=== PATIENT | male | born 1960 | race Caucasian/White ===

== ENCOUNTER 2016-10-15 22:00 | Inpatient (IN) | payer MEDICARE, MEDICAID ==
[~2016-10-15] VITALS: Ht 170.2 cm; Wt 93.2 kg
--- NOTE | ~2016-10-15 | ER ---
PATIENT'S NAME: FRITZ [facility] AGE: 56 Y [address] ROOM: [place] [address] LOCATION: [facility] [place] ADMIT DATE: 10/16/2016 ER/Outpatient Report DISCHARGE DATE: FAMILY PHYSICIAN: PHYSICIAN, NO ATTENDING PHYSICIAN: OCHOA EDGAR V Time of Arrival: 2200 hours. Time of Evaluation: 2344 hours. IDENTIFICATION: A 56-year-old male. CHIEF COMPLAINT: Illness. HISTORY OF PRESENT ILLNESS: The patient is a 56-year-old male with cerebral palsy, change in medications and illness. He arrived at 2200 hours, but due to no beds being available in the emergency room was triaged and then not put back until 2344 hours, but was seen with the nurse at the time he was put back. The patient has a history of cerebral palsy, is . According to his and the friend who has brought them in, he normally does carry on a conversation and is normally ambulatory with a walker. The patient sees Kain [place] for adjustment on his psychiatric medications and on 09/02/2016, he began tapering of his lithium and he was initiated on Latuda 20 mg daily for 1-week then increased to 40 mg daily. He has since weaned off his lithium and on 10/12/2016, his Latuda was increased to 80 mg daily. He continued all of his other current medications. Since changing that on , he has been requiring a little bit more care and today he has not been ambulatory, not eating. He is continuing to drink fluids okay and not verbal with them where as normally he is verbal. PAST MEDICAL HISTORY: ALLERGIES: HALDOL. HIS IS UNCERTAIN WHAT HAPPENS WITH THAT AND THAT WAS PRIOR TO WHEN SHE MET HIM. CURRENT MEDICATIONS: 1. Lisinopril 10 mg daily. 2. Sertraline 50 mg 1-1/2 tablet daily. 3. Levothyroxine 100 mcg daily. 4. Allopurinol 100 mg 2 tablets daily. 5. Vitamin D. 6. Olanzapine 10 mg at bedtime. 7. Trazodone 50 mg at bedtime. PATIENT'S NAME: FRITZ [facility] AGE: 56 Y [address] ROOM: [place] [address] LOCATION: [facility] [place] ADMIT DATE: 10/16/2016 ER/Outpatient Report DISCHARGE DATE: FAMILY PHYSICIAN: PHYSICIAN, NO ATTENDING PHYSICIAN: OCHOA EDGAR V 8. Tamsulosin 0.4 mg 2 capsules at bedtime. 9. Latuda 80 mg at bedtime. MEDICAL PROBLEMS: The patient is legally blind. He has cerebral palsy, hyperlipidemia, gout, depression, hypertension, sleep apnea wears CPAP, bipolar disorder. He was hospitalized in 1992 for alcoholism. PRIOR SURGERIES: In 1962, heel cord surgery. In 1970, another foot surgery. In 1964, rotate bones in both legs. In 1962, left eye surgery. In 1988, right eye surgery. In 2011, lumbar decompression and stabilization with a transfemoral lumbar interbody fusion at L5-S1. FAMILY HISTORY: Paternal grandfather with stroke. Mother with high blood pressure. Maternal grandmother and paternal grandmother with diabetes. Maternal grandfather and maternal uncle with [place]. Stomach ulcers in father, asthma in father, emphysema in father. Migraine in mother. According to [facility] records, the patient is nonverbal at this time and the history is not obtained from him. REVIEW OF SYSTEMS: Unable to obtain from the patient. PHYSICAL EXAMINATION: VITAL SIGNS: Weight 96.1 kg. Blood pressure 153/83, pulse 60, respirations 18, temperature 98.2, and saturations 94% on room air. GENERAL: A 56-year-old male who is nonverbal, blind in both eyes. He is following some commands. He is a 2-person assist to get onto the cot. HEENT: Head: Normocephalic. Eyes: Enucleated on the right. Loss of vision on the left. Nose: Mucosa pink. No lesions. Mouth: No lesions. Pharynx benign. NECK: Supple. No lymphadenopathy. LUNGS: Clear to auscultation. Breath sounds are equal. No rhonchi, wheezes, or rales. HEART: Regular rate and rhythm. No murmur, rub, or gallop. ABDOMEN: Bowel sounds present. Soft, nondistended, appears to be nontender. SKIN: Anchor, warm, and dry. No lesions or rashes noted. NEURO: The patient is alert. Unable to determine orientation. Cranial nerves 2 through 12 grossly intact. Motor strength 5/5 and he follows commands. His upper extremities and lower extremities appeared to be weak. Sensation appears to be intact. The patient does have some rigidity and cogwheeling in his upper extremities. LABORATORY DATA: PATIENT'S NAME: FRITZ [facility] AGE: 56 Y [address] ROOM: [id number] [place], [place] [address] LOCATION: [facility] [place] ADMIT DATE: 10/16/2016 ER/Outpatient Report DISCHARGE DATE: FAMILY PHYSICIAN: PHYSICIAN, NO ATTENDING PHYSICIAN: OCHOA EDGAR V Normal saline was initiated at 100 mL/h. Labs were obtained. Sodium 142, potassium 3.6, chloride 111, CO2 of 21, BUN 27, creatinine 1.9 which appears to be stable. Blood sugar 96. Liver enzymes normal. CPK 107 and CK-MB 1.8. Troponin I less than 0.040. TSH 1.060. Hemoglobin 13.3, hematocrit 40.8, platelets 231. White count 8.2 with a normal differential. INR 1.01. IMAGING: Head CT, no acute intracranial abnormality per [facility]. [place] level less than 0.5. IMPRESSION: 1. Encephalopathy. 2. Generalized weakness worse in the lower extremities. 3. Bipolar disorder. 4. Depression. 5. Cerebral palsy. PLAN: This may be related to his medication and maybe extrapyramidal symptoms. The patient will be admitted per Dr. Edgar hospitalist, who evaluated him here in the emergency room. The patient is a patient of Dr. Oren Arango and I did offer to the patient's transfer to [facility] for Dr. Arango. At this point, they will be admitted here and follow up as an outpatient with Dr. Arango. LOKI DENIS MD CAR/modl /[id number] d: 10/16/16 0520 t: 10/23/16 1838, OUTPATIENT REPORT
--- NOTE | ~2016-10-15 | HP ---
PATIENT'S NAME: FRITZ ALAN [facility] AGE: 56 Y [address] ROOM: [place] [address] LOCATION: [facility] [place] ADMIT DATE: 10/16/2016 History & Physical DISCHARGE DATE: FAMILY PHYSICIAN: PHYSICIAN, NO ATTENDING PHYSICIAN: OCHOA EDGAR V DATE OF SERVICE: CHIEF COMPLAINT: Altered mental status. HISTORY OF PRESENT ILLNESS: The patient is a legally blind 56-year-old male with past medical history of retinal detachment, cerebral palsy, and bipolar disorder. The patient has been undergoing an up-titration of his Latuda subsequent to discontinuation of his lithium due to elevated creatinine. The patient had a dose escalation from 40 mg of Latuda nightly to 80 approximately 3 days ago. Since then, he has become progressively more sleepy, difficult to arouse, and unable to ambulate, which is usually not a problem for him. Quality history provided by his friend and his . Normally, he is quite awake, alert, and able to ambulate with a walker, but recently he has just been very sleepy and has not been able to perform ADLs. A workup in the ER was unremarkable. REVIEW OF SYSTEMS: At this point, the patient actually denies any chest pain, shortness of breath, nausea, vomiting, diarrhea, or palpitations. All systems have been reviewed and are negative aside from pertinent positives mentioned above. PAST MEDICAL HISTORY: As provided by the is, 1. Cerebral palsy. 2. Multiple leg surgeries. 3. Bipolar. 4. Bilateral retinal detachment, legally blind. CURRENT MEDICATIONS: 1. Lisinopril. 2. Sertraline. 3. Levothyroxine. 4. Allopurinol. 5. Vitamin D. 6. Olanzapine. 7. Trazodone. PATIENT'S NAME: FRITZ ALAN [facility] AGE: 56 Y [address] ROOM: [place] [address] LOCATION: [facility] [place] ADMIT DATE: 10/16/2016 History & Physical DISCHARGE DATE: FAMILY PHYSICIAN: PHYSICIAN, NO ATTENDING PHYSICIAN: OCHOA EDGAR V 8. Tamsulosin. 9. Latuda. SOCIAL HISTORY: Negative for any history of ongoing toxic habits. FAMILY HISTORY: Reviewed and is noncontributory due to known underlying etiology for his presentation. PHYSICAL EXAMINATION: VITAL SIGNS: Blood pressure 153/83, temperature 98.2, pulse 60, and saturating 94% on room air. GENERAL APPEARANCE: A well-developed, well-nourished, middle-aged male, quite sleepy, but responding to some commands, in no acute distress. NEUROLOGIC: Some rigidity in upper extremities, but normal deep tendon reflexes and no other focalizing signs. EYES: Opacification of the right cornea with left pupil reactive to light. LYMPHATIC: No cervical lymphadenopathy. ENDOCRINE: No thyromegaly. LUNGS: Clear to auscultation. HEART: Rate is regular. No appreciable murmurs, gallops, or rubs. ABDOMEN: Soft, nontender, nondistended. : No costovertebral angle tenderness. VASCULAR: 2+ pedal pulses. MUSCULOSKELETAL: No apparent muscle or joint abnormalities. SKIN: Warm and dry. PSYCHIATRIC: Cannot be performed due to considerably diminished mental status. DIAGNOSTIC DATA: Review of lab results in the ER was significant for creatinine 1.9 which is about his baseline. Normal CBC. ASSESSMENT AND PLAN: This is a 56-year-old male who will be admitted for, 1. Observation with a likely side effect of Latuda. I believe that his presentation is likely due to rapid titration of Latuda as well as interaction with Zyprexa. We will hold off on both agents. We will re- evaluate his mental status in the morning. We will consider Psychiatry evaluation for psychiatric med optimization. 2. Cerebral palsy. We will provide ADLs here in the hospital. 3. Presumed hypertension. We will continue him on lisinopril. 4. Deep venous thrombosis prophylaxis will be instituted if the patient stays in the hospital for more than 48 hours. PATIENT'S NAME: FRITZ ALAN [facility] AGE: 56 Y [address] ROOM: [place] [address] LOCATION: [facility] [place] ADMIT DATE: 10/16/2016 History & Physical DISCHARGE DATE: FAMILY PHYSICIAN: , NO ATTENDING PHYSICIAN: OCHOA EDGAR V Additional management will depend on clinical course. Time dedicated to this patient's encounter is 35 minutes. MD MARCY NEGRETE/modl /[id number] D: [id number] T: [id number] HISTORY & PHYSICAL
--- NOTE | ~2016-10-15 | CON ---
PATIENT'S NAME: FRITZ ALAN [facility] AGE: 56 Y [address] ROOM: [address] [address] LOCATION: [facility] [place] ADMIT DATE: 10/17/2016 Consultation DISCHARGE DATE: FAMILY PHYSICIAN: Oren Arango MD ATTENDING PHYSICIAN: OCHOA EDGAR V DATE OF CONSULTATION: 10/17/2016 REFERRING PHYSICIAN: Kain Morrell APRN DATA: This is a 56-year-old, male, currently admitted to [facility]. Consultation requested by Janey Cutler. DIAGNOSES: At time of evaluation, delirium, mixed presentation, acute, due to multiple medical conditions. RECOMMENDATIONS: At present time, I see that most of the medication have been removed as his appropriate case of delirium. Nevertheless, I am going to discontinue the Zoloft that he might not necessarily needed at present time. He might benefit from some antipsychotic, something I already discussed with the patient's , so I am reinstating the Zyprexa Zydis to just 10 mg every nighttime. This can be discontinued or changed upon discharge, but for the time being, he does need that. HISTORY: This gentleman ended up in the hospital recently apparently there were some changes on his medication, had been on lithium for a diagnosis of bipolar disorder, but he was changed to Latuda and as they increased the Latuda from 40-80 mg, he started getting very acutely confused, ended up in the hospital. In the hospital, he has been almost catatonic. Nevertheless, there has been two documented instances of physical aggression, lots of confusion during the time that he has been there, and there has been an alternation. There have been no changes. There are at times in which the patient is actually better able to answer questions and some others in which he is not, making very typical delirium. The patient's gave me some instances. She does not know of any previous instance of psychosis, maggy, hypomania, any previous instances of obsession and compulsion, eating disorder, post traumatization, or gambling, but again they have only been for 9 years. SUBSTANCE USE HISTORY: The patient is not a smoker, a drinker, or a drug user. PAST PSYCHIATRIC HISTORY: PATIENT'S NAME: FRITZ ALAN [facility] AGE: 56 Y [address] ROOM: [address] [address] LOCATION: [facility] ADMIT DATE: 10/17/2016 Consultation DISCHARGE DATE: FAMILY PHYSICIAN: Oren Arango MD ATTENDING PHYSICIAN: OCHOA EDGAR V Apparently, the patient has been before in [facility] many years ago, we do not have any records of that. does not know of any suicide attempts. MEDICAL HISTORY: Per Dr. Edgar' H and P. PERSONAL HISTORY: He is , disabled, has been with his for the last 9 years. The patient has had no children. HISTORY OF ABUSE: Again, the patient's does not know of any instance in which the patient has been abused physically, sexually, or psychologically. FAMILY HISTORY: Noncontributory. MENTAL STATUS EXAMINATION: This is a gentleman who is trying to be cooperative, but he is very confused, disoriented, and does not know even some personal information, acknowledged to me well, but again says that he cannot tell me what the day, where he is, who is the lady that is being with him, who is his , or his son's address. The patient knows that he is sick and most of his answers are monosyllabic, so speech is barely productive. Mood seems to be very restricted. Affect is restricted. Thought content is relevant. The patient is not endorsing any suicidal or homicidal ideation, not apparently recently endorsing any auditory or visual hallucination. No delusional thoughts. Thought process seemed to be not congruent, not coherent, and lots of alogia. Insight and judgment seem to be impaired. Memory could not be tested. Level of alertness seems to be fluctuating and his intelligence is average. STRENGTHS: Intelligence, access to service. BARRIERS: Physical health, coping skills. ROSA HIGGINS MD HG/modl PATIENT'S NAME: FRITZ ALAN [facility] AGE: 56 Y [address] ROOM: [address] [address] LOCATION: [facility] [place] ADMIT DATE: 10/17/2016 Consultation DISCHARGE DATE: FAMILY PHYSICIAN: Oren Arango MD ATTENDING PHYSICIAN: OCHOA EDGAR V /[id number] d: 10/17/16 1836 t: 10/18/16 1002, CONSULTATION REPORT
--- NOTE | ~2016-10-15 | CON ---
PATIENT'S NAME: FRITZ ALAN [facility] AGE: 56 Y [address] ROOM: [id number] [place], [place] [address] LOCATION: [facility] ADMIT DATE: 10/17/2016 Consultation DISCHARGE DATE: FAMILY PHYSICIAN: Oren Arango MD ATTENDING PHYSICIAN: OCHOA EDGAR V DATE OF CONSULTATION: 10/23/2016 REFERRING PHYSICIAN: Kain Morrell APRN The patient was seen in neurologic consultation on 10/23/2016 and discussed with the Hospitalist Service. HISTORY OF PRESENT ILLNESS: Mr. Alan is a 56-year-old male patient, who has a history of blindness in the right eye as well as history of bipolar depression. The patient was sent into the hospital for alteration in his sensorium and change in his behavior in general. History according to his is that he has been on longstanding lithium for many decades. 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 It was recommended that the patient be taken off lithium. The patient was slowly taken off lithium over course of a few weeks, then was slowly started on the medication, Latuda in an up titration manner. The patient started to have some issues, was becoming poorly arousable and following commands though he would eventually be seen by myself here on neurologic consultation. He seemed to follow commands but answer questions late in a delayed fashion but seemed to be alert enough and oriented enough to participate in eating meals at least having some basic orientation to persons in the room and to his . His gave a very variable picture of him. He noted that in the past he could have some change in his behavior, will become castro, but this was more of an issue where he seemingly understood commands, but did not eat voluntarily, questions all was very slow to answer. Based upon my neurologic evaluation of the patient, I discussed with the team treating him that I thought this was more of a behavioral abnormality consistent with a catatonic state. I pointed to some classic features of catatonia involving an increase muscle tone as well as force hand forestry crew chief in waxing flexibility. Furthermore, brain MRI not find any acute evidence for a stroke, bleed, but it did show significant amount of brain atrophy that would be more prominent for the patient's age. With all this noted, I recommended the patient be placed on a trial of benzodiazepines often to treat for an acute event of catatonic behavior. CURRENT MEDICATIONS: Include: 1. Lorazepam 1 mg 3 times a day. PATIENT'S NAME: FRITZ ALAN [facility] AGE: 56 Y [address] ROOM: [place] [address] LOCATION: [facility] ADMIT DATE: 10/17/2016 Consultation DISCHARGE DATE: FAMILY PHYSICIAN: Oren Arango MD ATTENDING PHYSICIAN: OCHOA EDGAR V 2. Risperidone 1 mg tablet twice a day. 3. Enoxaparin 30 mg daily subcutaneously DVT prophylaxis. 4. Tamsulosin 0.8 mg at bedtime. 5. Lisinopril 10 mg daily. 6. Allopurinol 200 mg daily. 7. Levothyroxine 100 mcg p.o. q.a.m., which is listed as unknown reaction to Haldol. Home medications did include: 1. Sertraline. 2. Trazodone. 3. Olanzapine as some of these medications have been changed on his admission. PRIOR MEDICAL HISTORY: He has a history of sleep apnea. He wears a CPAP at night. He has a history of alcohol abuse for which he had a hospitalization back in the . Has a history of hyperlipidemia, gout, and bipolar depression with hypertension. PRIOR SURGERIES: Included a right eye surgery back in 1988, some left eye surgery back in the . He has a lumbar decompression with stabilization with an interbody fusion at L5-S1. FAMILY HISTORY: Not consistent with any type of history here of bipolar disease as far as we are aware. Paternal grandfather had strokes and his mother had hypertension. REVIEW OF SYSTEMS: The patient has had some alteration in his behavior over the course of the past two weeks or so in the setting of going off lithium for which he has been on for decades. This has been consistent with delay in answering questions, blank staring into space, changes in his motor activity including decrease in motor activity skills, still being able to participate in eating, chewing, swallowing, and answering questions appropriately. Very variable during the course of the day. PHYSICAL EXAMINATION: VITAL SIGNS: The patient's vital signs revealed a pulse of 62, respirations 18, blood pressure 150/83, temperature is 98. GENERAL: The patient is nonverbal until prodded. He appears to be in enucleated right eye. He does follow basic commands that is asked of him. MUSCULOSKELETAL: In testing of his extremities, has normal facial symmetry. Flexion of neck and extension, neck is normal. The patient does have an increased hand forestry crew chief and increased tone in the bilateral upper extremities. His bilateral lower extremity tone is normal. Flexes are symmetric at +1 at PATIENT'S NAME: FRITZ ALAN [facility] AGE: 56 Y [address] ROOM: [id number] [place] [id number] LOCATION: [facility] ADMIT DATE: 10/17/2016 Consultation DISCHARGE DATE: FAMILY PHYSICIAN: Oren Arango MD ATTENDING PHYSICIAN: OCHOA EDGAR V the biceps, triceps, brachioradialis, patellar, and ankle jerk reflexes. Plantar reflexes are downgoing. The patient was not ambulated presently. IMPRESSION: The patient I believe has some classic signs that are consistent with catatonia. His muscle tone is increased in general. There was a question about whether he has a history of cerebral palsy and this may explain some spasticity, but this may explain some increase in tone, but he is not spastic as one would expect with cerebral palsy. His findings show an increase in tone somewhat consistent with extrapyramidal findings in a person with parkinsonian features. Though this does not appear to be parkinsonism, it may be associated with long-standing use of antipsychotic medications or could be more acute in the setting of catatonia. The classic finding of catatonia would be increased tone. Secondly, he does have a forced hand forestry crew chief. That is when I asked him to shake his hand, he complies, but does not release the hand forestry crew chief. This type of forced hand grasping is typical in catatonic states. Third is waxing flexibility. The patient's increased tone is such that it allows me to pose him into certain positions and he can stay posed very much like a wax figure. He can sustain this abnormal position after asking him to release this position when his arms are placed in a certain odd position. Waxing flexibility is also a classic sign of catatonia along with the increased tone and forced hand gripping. Finally though it is difficult to fully say if his vision is associated with him having aversion to looking toward the speaker, he does seem to have a forced aversion to persons speaking to him. This is a quality in catatonia and this often called negativism or aversion to turning away from the speaker but answering questions at time when it is chosen by the patient is again another catatonic feature. The typical treatment trial for a period of catatonia is to do benzodiazepine treatment during the course of the day. The patient is now on lorazepam treatment and we will see how this works for him in general. Furthermore, he has had an antipsychotic medication changed around a bit if this may ultimately be helpful for him to break this catatonic state. This type of presentation is very odd but certainly the understanding of catatonia and why persons going to catatonia is very unclear from the literature. There is much written in the literature of withdrawal to certain medications that are long- standing that can induce a period of catatonia. In fact that he was on lithium for many decades and a new medication was started, certainly have a role to play in his catatonic state. 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 With this, I had the decision to remove the medication at this point in time, has been chosen thus, it is important to at least do a trial of benzodiazepines to see if this could break the catatonic PATIENT'S NAME: FRITZ ALAN [facility] AGE: 56 Y [address] ROOM: [place] [address] LOCATION: [facility] ADMIT DATE: 10/17/2016 Consultation DISCHARGE DATE: FAMILY PHYSICIAN: Oren Arango MD ATTENDING PHYSICIAN: OCHOA EDGAR V formerly [facility]. Also on board again is an antipsychotic. Ultimately, if this future of dense catatonia is not successfully broken with these medications and with time, electroconvulsive therapy can certainly be considered as a possible option here. MD ARMOND MONTILLA/david /[id number] d: 10/28/16 2251 t: 11/05/16 2210, CONSULTATION REPORT
--- NOTE | ~2016-10-15 | DS ---
PATIENT'S NAME: FRITZ ALAN [facility] AGE: 56 Y [address] ROOM: [id number] [place], [place] [address] [place] [facility] [place]: 10[place]17[place]2016 Discharge Summary DISCHARGE DATE: 11/01/2016 FAMILY PHYSICIAN: Oren Arango MD ATTENDING PHYSICIAN: Isma Mahoney V DISCHARGE DIAGNOSES: 1. Catatonia, resolved. 2. Bipolar with agitation, resolved. 3. Acute encephalopathy, resolved. 4. Cerebral palsy. 5. Chronic kidney disease, stage III. 6. Chronic hypercapnic respiratory failure secondary to obstructive sleep apnea. 7. Essential hypertension. CONSULTING PHYSICIANS: 1. Dr. Kenneth Lubin. 2. Dr. Ruvalcaba. HOSPITAL COURSE: Please refer to admitting history and physical as dictated by Dr. Mahoney. Briefly, the patient was admitted to [facility] with acute encephalopathy and catatonia. He was recently taken off lithium after being on it for 30 years and had a rapid titration of Latuda. He was admitted to the Med-Surg floor. His Latuda and Zyprexa were both discontinued upon admit, the rest of his home meds were continued. Physical Therapy and Occupational Therapy were both consulted for restorative care. His CPAP was used when he was asleep. Dr. Ruvalcaba did see the patient, and he did recommend to discontinue his Zoloft and start Zyprexa 10 mg at bedtime. He did have some noted hypernatremia as high as 150. He was given D5W. He was started on Lovenox for DVT prophylaxis. Due to his acute encephalopathy and catatonia, MRI of the brain was obtained, which showed no acute findings with brain atrophy prominent for age 56, chronic cerebellar lacunar infarcts, and right phthisis bulbi. Initial CT scan of his head upon admit was also shown as normal CT scan of the head. Neurology was consulted. They felt as though this was likely psychiatric related and catatonia. It was recommended by Neurology to start the patient on Ativan. The patient's Zyprexa was initially titrated to 5 mg in the morning and [address] scan of his thoracic and lumbar were also obtained, which showed mild degenerative changes with no significant abnormality. No significant stenosis was identified. Pelvis x- ray was also performed and showed no evidence of displaced fracture or dislocation. Further consultation was discussed with Psych. His Zyprexa was eventually discontinued. He was started on risperidone 1 mg p.o. in the morning and at 1400 hours as well as Ativan 1 mg p.o. t.i.d. He gradually improved and his catatonia did resolve. The patient was then able to carry on PATIENT'S NAME: FRITZ ALAN [facility] AGE: 56 Y [address] ROOM: [address] [address] [place] [facility] [place]: 10[place]17[place]2016 Discharge Summary DISCHARGE DATE: 11/01/2016 FAMILY PHYSICIAN: Oren Arango MD ATTENDING PHYSICIAN: Isma Mahoney. He was able to ambulate. He was given a 7-day course of cephalexin due to some left arm cellulitis from IV infiltration. The patient was noted to have some constipation. He was given MiraLax, milk of magnesia, and Dulcolax suppositories as needed. On 10/26/2016, the patient did have an unwitnessed fall. CT of the head was performed after the fall. CT scan done on 10/26/[address] scan of the head. The patient's hypernatremia had stabilized. He was no longer on IV fluids. He was taking a regular diet. He was up ambulatory with a walker. Discussed the patient's stay with his , discussed inpatient treatment. She requested that the patient be discharged and continued to be managed as an outpatient by Kain Morrell APRN, who he normally sees for his psychiatric issues. I did discuss the case on 11/01/[address] Ruvalcaba. It was recommended that he continue the Ativan and Risperdal. For now, he can be managed as an outpatient basis with further med adjustments by his primary provider for psychiatric care. His chronic kidney disease, stage III remained stable throughout his stay. On 11/01/2016, the patient was awake, alert, and oriented. He was able to carry on a conversation. He denied any suicidal thoughts. He was ambulatory with a walker. His vital signs were stable. It was felt as though he was safe to be discharged to home with his and home health care. I did call and leave a message with Dr. Oren Arango prior to the patient's discharge. It was recommended that he follow up with Dr. Oren Arango in 3 days with a CBC and a BMP at that time, follow up with Kain Morrell APRN, in 2 to 3 days, and follow up with Dr. Powers in 2 weeks. LABORATORY DATA: Sodium 142 upon admit, it went as high as 150, prior to discharge 142; potassium 3.6 upon admit, it dropped as low as 3.4, this was replaced orally and prior to discharge stable at 4.2; calcium 9.5; BUN upon admit 27, prior to discharge 41; creatinine upon admit 1.9, it went as high as 2.0, prior to discharge 1.7; alkaline phosphatase 72; AST 25; ALT 46; GFR 37 upon admit, it did drop as low as 35, prior to discharge 42; CPK 107; CK-MB 1.8; troponin less than 0.040; lithium less than 0.5; ammonia less than 10; TSH 1.060. WBCs 6.5 to 8.5, hemoglobin 12.9 to 14.1, hematocrit 38.6 to 41.7, platelets 241. UA negative. RADIOLOGY REPORTS: Please refer to hospital course. DISCHARGE INSTRUCTIONS: The patient will be discharged to home with home health care. Diet: Regular. Activity: As tolerated with a walker. Followup appointment with Dr. Oren Arango with a CBC and a BMP in 3 days. Followup appointment with Kain Morrell APRN, in 2 to 3 days. Follow up with Dr. Powers in 2 weeks. CPAP when asleep. DISCHARGE MEDICATIONS: 1. Allopurinol 200 mg p.o. daily. 2. Vitamin D 1000 units p.o. daily. PATIENT'S NAME: FRITZ ALAN [facility] AGE: 56 Y [address] ROOM: [place] [address] [place] [facility] [place]: 10[place]17/2016 Discharge Summary DISCHARGE DATE: 11/01/2016 FAMILY PHYSICIAN: Oren Arango MD ATTENDING PHYSICIAN: Isma Mahoney V 3. Levothyroxine 100 mcg p.o. daily. 4. Lisinopril 10 mg p.o. daily. 5. Ativan 1 mg p.o. 3 times a day. 6. MiraLax 17 g p.o. twice daily. 7. Risperidone 1 mg p.o. at 0900 hours and 1400 hours. 8. Flomax 0.8 mg p.o. at bedtime. 9. Tylenol 500 to 1000 mg p.o. q.6 hours p.r.n. pain. 10. Fiber Gummies 2 tablets p.o. daily. 11. CPAP when asleep. Time spent at the bedside as well as in coordination of care 35 minutes. JANES OTOOLE APRN FOR MD JULIO C YE/david /[id number] CC: MD Oren Reeves MD Jason R Mallin, MD Clint Malcom, APRN d: 11/02/16 0447 t: 11/05/16 1541, DISCHARGE SUMMARY
[2016-10-16 00:14] LABS: BASOPHIL # 0.1 K/uL (0.0-0.2); BASOPHIL % 0.6 %; EOSINOPHIL # 0.1 K/uL (0.0-0.5); EOSINOPHIL % 1.7 %; HEMATOCRIT 40.8 % (37.0-53.0); HEMOGLOBIN 13.3 g/dL (12.0-17.0); IMMATURE GRANULOCYTE % 0.2 %; LYMPHOCYTE # 1.3 K/uL (0.8-4.0); MCH 32.5 pg (27.0-34.0); MCHC 32.6 gm/dL (32.0-36.5); MCV 99.8 fl (83.0-98.0); MONOCYTE # 0.8 K/uL (0.0-1.0); MONOCYTE % 9.1 %; MPV 9.1 fl (9.4-12.4); NEUTROPHIL % 72.4 %; NRBC % 0 /100WBC (0-0.00); PLATELET COUNT 231 K/uL (150-450); RBC 4.09 M/uL (4.00-6.00); RDW-CV 13.2 % (11.9-14.6); WBC 8.2 K/uL (4.0-11.0)
[2016-10-16 00:30] LABS: INR - (THERAPEUTIC) 1.01 (0.92-1.07); PROTIME 10.6 SECONDS (9.8-11.4); PTT 21 SECONDS (25-32)
[2016-10-16 00:33] LABS: ALBUMIN 3.7 gm/dL (3.5-5.0); ALK PHOS 71 IU/L (33-138); ALT 39 IU/L (12-78); ANION GAP 13.6 (10.0-19.0); AST 17 IU/L (10-40); BLOOD UREA NITROGEN 27 mg/dL (6-24); CALCIUM 9.6 mg/dL (8.5-10.5); CHLORIDE 111 mMol/L (96-110); CO2 21 mMol/L (22-32); CPK 107 IU/L (35-332); CREATININE 1.9 mg/dL (0.6-1.3); ESTIMATED GFR (MDRD EQUATION) 37; POTASSIUM 3.6 mMol/L (3.7-5.1); SODIUM 142 mMol/L (135-145); TOTAL BILIRUBIN 0.2 mg/dL (0.0-1.5); TOTAL PROTEIN 8.1 g/dL (6.0-8.4)
[2016-10-16] MEDS ORDERED: PRINIVIL OR ZES10 MG PO (03:13)
[2016-10-16] MEDS ORDERED: LEVOTHROID (S100 MCG PO (03:14)
[2016-10-16] MEDS ORDERED: ZOLOFT50 MG PO (03:14)
[2016-10-16] MEDS ORDERED: ZYLOPRIM100 MG PO (03:14)
[2016-10-16] MEDS ORDERED: VITAMIN D1000 UNI1 PO (03:15)
[2016-10-16] MEDS ORDERED: FLOMAX0.4 MG PO (03:15)
[2016-10-16] MEDS ORDERED: ZYPREXA10 MG PO (03:15)
[2016-10-16] MEDS ORDERED: TYLENOL EXTRA500 MG PO (03:16)
[2016-10-16] MEDS ORDERED: LATUDA80 MG PO (03:16)
[2016-10-16] MEDS ORDERED: FIBER GUMMIES1 EACH PO (03:17)
[2016-10-16] MEDS ORDERED: CPAP INH (03:59)
[2016-10-17 05:45] LABS: BASOPHIL % 0.6 %; EOSINOPHIL % 0.5 %; HEMATOCRIT 41.7 % (37.0-53.0); HEMOGLOBIN 13.3 g/dL (12.0-17.0); IMMATURE GRANULOCYTE % 0.3 %; LYMPHOCYTE # 0.9 K/uL (0.8-4.0); LYMPHOCYTE % 13.2 %; MCH 32.1 pg (27.0-34.0); MCHC 31.9 gm/dL (32.0-36.5); MCV 100.7 fl (83.0-98.0); MONOCYTE # 0.4 K/uL (0.0-1.0); MONOCYTE % 6.3 %; NEUTROPHIL # (ANC) 5.2 K/uL (1.4-9.0); NEUTROPHIL % 79.1 %; NRBC % 0 /100WBC (0-0.00); PLATELET COUNT 203 K/uL (150-450); RBC 4.14 M/uL (4.00-6.00); RDW-CV 13.2 % (11.9-14.6); WBC 6.5 K/uL (4.0-11.0)
[2016-10-17 06:00] LABS: CALCIUM 9.1 mg/dL (8.5-10.5); POTASSIUM 3.9 mMol/L (3.7-5.1)
[2016-10-17 06:02] LABS: ANION GAP 10.9 (10.0-19.0)
[2016-10-18 05:41] LABS: CALCIUM 9.2 mg/dL (8.5-10.5); CREATININE 1.9 mg/dL (0.6-1.3)
[2016-10-18 16:57] LABS: BICARBONATE 22.8 mmol/L (18.0-23.0); PCO2 32 mmHg (35-45); PO2 71 mmHg (80-90)
[2016-10-19 05:40] LABS: ANION GAP 10.4 (10.0-19.0); CREATININE 1.8 mg/dL (0.6-1.3); POTASSIUM 3.4 mMol/L (3.7-5.1)
[2016-10-20 05:49] LABS: ANION GAP 10.5 (10.0-19.0); CALCIUM 9.4 mg/dL (8.5-10.5); CREATININE 1.8 mg/dL (0.6-1.3); POTASSIUM 3.5 mMol/L (3.7-5.1)
[2016-10-21 06:24] LABS: ANION GAP 11.2 (10.0-19.0); CALCIUM 9.7 mg/dL (8.5-10.5); CREATININE 1.9 mg/dL (0.6-1.3); POTASSIUM 4.2 mMol/L (3.7-5.1)
[2016-10-22 06:18] LABS: POTASSIUM 3.7 mMol/L (3.7-5.1)
[2016-10-22 06:19] LABS: ANION GAP 12.7 (10.0-19.0)
[2016-10-23 06:05] LABS: BASOPHIL % 0.5 %; EOSINOPHIL # 0.2 K/uL (0.0-0.5); HEMATOCRIT 42.9 % (37.0-53.0); HEMOGLOBIN 14.1 g/dL (12.0-17.0); IMMATURE GRANULOCYTE % 0.4 %; LYMPHOCYTE # 0.9 K/uL (0.8-4.0); LYMPHOCYTE % 10.7 %; MCH 32.6 pg (27.0-34.0); MCHC 32.9 gm/dL (32.0-36.5); MCV 99.1 fl (83.0-98.0); MONOCYTE # 0.7 K/uL (0.0-1.0); MONOCYTE % 7.6 %; MPV 9.1 fl (9.4-12.4); NEUTROPHIL # (ANC) 6.7 K/uL (1.4-9.0); NEUTROPHIL % 78.8 %; NRBC % 0 /100WBC (0-0.00); PLATELET COUNT 209 K/uL (150-450); RBC 4.33 M/uL (4.00-6.00); RDW-CV 13.2 % (11.9-14.6); WBC 8.5 K/uL (4.0-11.0)
[2016-10-23 06:21] LABS: ALBUMIN 3.1 gm/dL (3.5-5.0); CALCIUM 9.3 mg/dL (8.5-10.5); CREATININE 1.7 mg/dL (0.6-1.3); TOTAL PROTEIN 7.4 g/dL (6.0-8.4)
[2016-10-23 06:26] LABS: TOTAL BILIRUBIN 0.3 mg/dL (0.0-1.5)
[2016-10-24 05:09] LABS: CALCIUM 9.7 mg/dL (8.5-10.5); CREATININE 1.8 mg/dL (0.6-1.3)
[2016-10-25 05:17] LABS: ANION GAP 11.8 (10.0-19.0); CALCIUM 9.5 mg/dL (8.5-10.5); CREATININE 1.8 mg/dL (0.6-1.3); POTASSIUM 3.8 mMol/L (3.7-5.1)
[2016-10-27 06:02] LABS: ANION GAP 11.4 (10.0-19.0); CALCIUM 9.9 mg/dL (8.5-10.5); CREATININE 1.8 mg/dL (0.6-1.3); POTASSIUM 4.4 mMol/L (3.7-5.1)
[2016-10-28 05:43] LABS: ANION GAP 11.4 (10.0-19.0); CALCIUM 9.5 mg/dL (8.5-10.5); CREATININE 1.7 mg/dL (0.6-1.3); POTASSIUM 4.4 mMol/L (3.7-5.1)
[2016-10-31 05:21] LABS: BASOPHIL # 0.1 K/uL (0.0-0.2); BASOPHIL % 0.6 %; EOSINOPHIL # 0.2 K/uL (0.0-0.5); EOSINOPHIL % 3.1 %; HEMATOCRIT 39.3 % (37.0-53.0); HEMOGLOBIN 12.9 g/dL (12.0-17.0); IMMATURE GRANULOCYTE % 0.1 %; LYMPHOCYTE # 1.5 K/uL (0.8-4.0); LYMPHOCYTE % 18.7 %; MCH 32.6 pg (27.0-34.0); MCHC 32.8 gm/dL (32.0-36.5); MCV 99.2 fl (83.0-98.0); MONOCYTE # 0.6 K/uL (0.0-1.0); MONOCYTE % 7.5 %; MPV 9.1 fl (9.4-12.4); NEUTROPHIL # (ANC) 5.5 K/uL (1.4-9.0); NRBC % 0 /100WBC (0-0.00); PLATELET COUNT 241 K/uL (150-450); RBC 3.96 M/uL (4.00-6.00); WBC 7.9 K/uL (4.0-11.0)
[2016-10-31 05:30] LABS: ANION GAP 13.2 (10.0-19.0); CALCIUM 9.5 mg/dL (8.5-10.5); CREATININE 1.7 mg/dL (0.6-1.3); POTASSIUM 4.2 mMol/L (3.7-5.1)
[2016-10-31 15:50] LABS: BILIRUBIN URINE NEGATIVE (NEGATIVE); BLOOD URINE NEGATIVE /UL (NEGATIVE); COLOR URINE YELLOW (YELLOW); GLUCOSE URINE NEGATIVE (NEGATIVE); KETONE URINE NEGATIVE (NEGATIVE); LEUKOCYTES URINE NEGATIVE /UL (NEGATIVE); NITRITE URINE NEGATIVE (NEGATIVE); PROTEIN URINE NEGATIVE (NEGATIVE); TURBIDITY URINE CLEAR (CLEAR); UROBILINOGEN URINE NORMAL (NORMAL)
[2016-11-01] MEDS ORDERED: ATIVAN 1 MG1 MG PO (11:55)
[2016-11-01] MEDS ORDERED: MIRALAX17 GM PO (11:56)
[2016-11-01] MEDS ORDERED: RISPERDAL1 MG PO (11:56)
== END 2016-11-01 13:35 | disposition home health service (06) | DRG 917 ==
LOC: GMED 22:00 → GMSU 10-16 02:12
PROVIDERS: Family Medicine; Nurse Practitioner Family; ADMIT Internal Medicine
DX: T43.592A Poisoning by other antipsychotics and neuroleptics, intentional self-harm, initial encounter (principal); G92 Toxic encephalopathy; J96.12 Chronic respiratory failure with hypercapnia; E87.0 Hyperosmolality and hypernatremia; H33.23 Serous retinal detachment, bilateral; N18.3 Chronic kidney disease, stage 3 (moderate); F31.9 Bipolar disorder, unspecified; G80.9 Cerebral palsy, unspecified; H54.8 Legal blindness, as defined in USA; G47.33 Obstructive sleep apnea (adult) (pediatric); I12.9 Hypertensive chronic kidney disease with stage 1 through stage 4 chronic kidney disease, or unspecified chronic kidney disease; F06.1 Catatonic disorder due to known physiological condition
CPT/HCPCS: C1751; G0378; G8978; G8979; G8980; G8993; G8994; G8995; G9168; G9169; G9170; J1650; J2060; J7030; J7060

== ENCOUNTER → 2017-01-08 | Outpatient (CLI) | payer MEDICARE ==
[~2017-01-08] MED LIST: ATIVAN 1 MG1 MG PO; CPAP INH; DEPAKOTE DELAY250 MG PO; FIBER GUMMIES1 EACH PO; FLOMAX0.4 MG PO; FLORAJEN3 CAPS460 MG PO; LATUDA80 MG PO; LEVOTHROID (S100 MCG PO; MIRALAX17 GM PO; MYRBETRIQ50 MG PO; PRINIVIL OR ZES10 MG PO; RISPERDAL1 MG PO; TYLENOL EXTRA500 MG PO; VITAMIN D1000 UNI1 PO; ZOLOFT50 MG PO; ZYLOPRIM100 MG PO; ZYPREXA ORALLY10 MG PO; ZYPREXA10 MG PO; ZYPREXA5 MG PO
--- NOTE | ~2017-01-08 | PUL ---
PATIENT'S NAME: FRITZ ALAN [facility] AGE: 56 Y [address] ROOM: [place] [address] LOCATION: [facility] ADMIT DATE: 01/08/2017 Pulmonary DISCHARGE DATE: FAMILY PHYSICIAN: Oren Arango MD ATTENDING PHYSICIAN: Raoul Ruvalcaba NAME OF PROCEDURE: Sleep Study PROCEDURE DATE: 01/08/2017 TECH: OSKAR Montoya TEST #: [facility] [place] [id number] TECHNICAL PARAMETERS: The patient was studied using International 10/20 measuring system. While the patient was studied, there was continuous monitoring of EEG (8 leads), EOG (2 leads), EKG (3 leads), submental EMG (3 leads), tibial (4 leads), respiratory inductive plethysmography (RIP) for thoracic and abdominal effort, oral and nasal airflow with a thermocouple and pressure transducer, and oximetry. The biometrics technician also performed visual and auditory observations noting things like body position, patient's status, breath sounds, artifact, snoring level and patient comments. Continuous sound was monitored using a 2-way speaker system and video monitoring was performed using an infrared camera. Review of the entire study was performed epoch by epoch utilizing a single epoch and multiple epoch capability sleep system. MEDICAL HISTORY: The patient is a 56-year-old overweight man with daytime sleepiness and snoring. SLEEP STAGE SUMMARY: The patient was studied for 424 minutes of which he slept 242 minutes. He fell asleep in 82 minutes and slept for 57% of the night. Sleep architecture revealed a decline in slow wave and REM sleep. RESPIRATORY SUMMARY: Patient is on CPAP at home. This study was done to re- titrate CPAP. CPAP was initiated at 8 cm and titrated to 12 cm with good control of the respiratory events. EKG SUMMARY: Average heart rate 51 beats per minute. No significant arrhythmias were noted. LIMB MOVEMENT SUMMARY: No clinically relevant periodic limb movements were noted. SUMMARY: Obstructive sleep apnea responsive to CPAP at 12 cm. PATIENT'S NAME: FRITZ ALAN [facility] AGE: 56 Y [address] ROOM: [place] [address] LOCATION: [facility] ADMIT DATE: 01/08/2017 Pulmonary DISCHARGE DATE: FAMILY PHYSICIAN: Oren Arango MD ATTENDING PHYSICIAN: Raoul Ruvalcaba PLAN: The patient will receive results from the ordering provider. Suggest CPAP at 12 cm. BHAVANI AGUILAR MD /[id number] dtt: 01/19/17 1301 , Bhavani Aguilar dtd: 01/10/17 1455
== END | disposition disaster alternative care site (69) ==
LOC: GSLP 20:22
DX: G47.33 Obstructive sleep apnea (adult) (pediatric) (principal)

== ENCOUNTER 2017-01-29 12:33 | Inpatient (IN) | payer MEDICARE ==
[~2017-01-29] VITALS: Ht 170.2 cm; Wt 91.0 kg
--- NOTE | ~2017-01-29 | HP ---
PATIENT'S NAME: FRITZ ALAN [facility] AGE: 56 Y [address] ROOM: [place] [address] LOCATION: [facility] [place] ADMIT DATE: 01/29/2017 History & Physical DISCHARGE DATE: FAMILY PHYSICIAN: Oren Arango MD ATTENDING PHYSICIAN: SAMUEL NEAL DATE OF SERVICE: CHIEF COMPLAINT: Acute delirium and agitation, bipolar disorder exacerbation. HISTORY OF PRESENT ILLNESS: This is a 56-year-old male with known history of bipolar disorder, on multiple psych medications, legal blindness, cerebral palsy, who presented to the emergency room with his after he was noted to be agitated with a lot of pressured speech since about midnight, and early this morning. The patient's tells me that this has been somewhat unusual for him to be acting this way. Of note, the patient has been on lithium for a long time, but due to raising creatinine, he was transitioned to risperidone, and his symptoms have been fairly well controlled since then. The patient's also tells me that he had not slept whole night long as well. The patient during my evaluation is awake and alert, but I was not able to get him to answer questions for me. In any case, he does not appear to be in any discomfort, and he is lying in bed comfortably. PAST MEDICAL HISTORY: Cerebral palsy, multiple leg surgeries, bipolar disorder, bilateral retinal detachment, and legally blind. SOCIAL HISTORY: The patient has a long history of alcohol abuse but has been sober for over 35 years. No tobacco or drug use noted. FAMILY HISTORY: The patient has a history of hypertension in the mother. REVIEW OF SYSTEMS: Despite my attempts, I was not able to get a detailed review of systems due to the patient's current state of mind. PHYSICAL EXAMINATION: VITAL SIGNS: Blood pressure 132/78, pulse 86, temperature 98.3, saturating 98% on room air. GENERAL: The patient is awake, alert, and oriented x3, in no acute distress. Gives one or two words answers but appears coherent. PATIENT'S NAME: FRITZ ALAN [facility] AGE: 56 Y [address] ROOM: [place] [address] LOCATION: [facility] [place] ADMIT DATE: 01/29/2017 History & Physical DISCHARGE DATE: FAMILY PHYSICIAN: Oren Arango MD ATTENDING PHYSICIAN: SAMUEL NEAL HEENT: Dry mucosal membranes. No scleral icterus or conjunctival pallor noted. SKIN: Small healing scabs on bilateral lower extremities noted. CHEST: Clear to auscultation bilaterally. HEART: S1, S2. Regular rate and rhythm. ABDOMEN: Soft, nontender, nondistended with positive bowel sounds. NEURO: Grossly nonfocal. MUSCULOSKELETAL: No joint tenderness, effusion, swelling noted. LABORATORY DATA: Creatinine 2.0, baseline around 1.7. ASSESSMENT AND PLAN: 1. Acute agitation. This appears to be related to his bipolar disorder exacerbation. The patient is more calm now after receiving a couple doses of IV Ativan. We will continue all of his psych medications, and we will also use p.r.n. Haldol as needed overnight and observe. We will have Psych come and evaluate the patient in the morning if his medications need to be adjusted. The patient is well known to Dr. Kevin, and we will use a one-to-one sitter in the meantime. 2. Bipolar disorder with psychotic features. Continue his current medications and manage as above. 3. Acute kidney injury on chronic kidney disease stage 3, creatinine 2.0 today, baseline around 1.7. We will give some IV fluids, and recheck his labs in the morning. 4. Hypertension. We will continue his blood pressure medications. 5. Hypothyroidism. We will continue his Synthroid replacement. DISPOSITION: Pending psych eval in a.m. SAMUEL NEAL MD BG/modl /[id number] D: T: 958 HISTORY & PHYSICAL
--- NOTE | ~2017-01-29 | ER ---
PATIENT'S NAME: FRITZ ALAN [facility] AGE: 56 Y [address] ROOM: [place] [address] LOCATION: [facility] [place] ADMIT DATE: 01/29/2017 ER/Outpatient Report DISCHARGE DATE: FAMILY PHYSICIAN: Oren Arango MD ATTENDING PHYSICIAN: SAMUEL NEAL CHIEF COMPLAINT: Change in mental status. HISTORY OF PRESENT ILLNESS: Mr. Jimenez is and lives with his . She states that starting yesterday morning he has been acting very unusually. He is an individual who has a history of cerebral palsy and psychotic episodes and is in fact legally blind. He was admitted for recent medication titration in September. She administers all of the medicines and he could not have gotten to them. The notes that starting yesterday he began crying and then pacing and could not sleep and this morning he began talking nonstop rapidly and repetitive in a chanting-type fashion for the same phrase and he would incorporate things from his environment into those phrases and they would change about every minute or two. The family note that he is normally able to dress himself, can ambulate with minimal assistance using his walker and is normally conversant. PAST MEDICAL HISTORY: Documented on the record and reviewed by me. SOCIAL HISTORY: Documented on the record and reviewed by me. MEDICATIONS: Documented on the record and reviewed by me. ALLERGIES: DOCUMENTED ON THE RECORD AND REVIEWED BY ME. REVIEW OF SYSTEMS: All systems reviewed and negative except as noted in the HPI. PHYSICAL EXAMINATION: VITAL SIGNS: Blood pressure 130/90, pulse 84, respiratory rate 16, temperature 98.8, SpO2 is 100% on room air. Pain is rated as 0/10. GENERAL: Age-appropriate male. Frail appearance, sitting in a wheelchair in what I would describe as emotional but not respiratory distress. No outward signs of pain. NEUROLOGIC: The patient is awake, he is not alert, he does not interact. He is repeating the same sentence over and over quite loudly and is near crying. PATIENT'S NAME: FIRTZ ALAN [facility] AGE: 56 Y [address] ROOM: [place] [address] LOCATION: [facility] [place] ADMIT DATE: 01/29/2017 ER/Outpatient Report DISCHARGE DATE: FAMILY PHYSICIAN: Oren Arango MD ATTENDING PHYSICIAN: SAMUEL NEAL His speech is intelligible. He does not respond to the examiner at all. He is a very significant 2-person assist to get into the hospital bed. HEENT: The patient appears grossly normocephalic. No evidence of trauma. The eyes are not PERRL. History of significant eye injuries. Legally blind. The oropharynx is grossly clear. NECK: Supple. Trachea is midline. CHEST: Heart is regular in rate and rhythm with no murmurs. LUNGS: Clear to auscultation, bilateral. No rhonchi, wheezes, or rales. ABDOMEN: Soft, nontender, and nondistended. BACK: Normal to inspection and palpation. EXTREMITIES: Thin and frail but otherwise unremarkable. No deformities or injuries. SKIN: Appears to be intact. LABS AND X-RAYS: No imaging was obtained for this gentleman today. Labs: CBC without appreciable abnormality. CMS with no significant electrolyte abnormalities other than a CO2 of 21. Renal function appears to be at baseline. LFTs are grossly unremarkable. Alcohol, acetaminophen, and salicylate are all undetectable. Free T4 is 1.5, TSH is 0.737. Urinalysis is unremarkable. UDS is unremarkable. IMPRESSION: Change in behavior with psychotic-type features. EMERGENCY DEPARTMENT COURSE: The patient was seen and evaluated as above. He was given 1 mg of Haldol IV and this stopped his unusual behavior. However, the patient is now borderline catatonic. He was able to walk, but is much lower than normal. He was evaluated by Vaibhav Bee, they agree to admission from a psychiatric standpoint. However, they do not feel they can provide adequate care for him secondary to his medical concerns. We attempted to get the patient to [facility] in [place] and they were unable to accept. At that time, we will admit him to the hospital here under the care of the hospitalist service and Psychiatry will see him, and see if we can get him headed in the right direction. All questions were answered and the patient was admitted to the hospitalist service. LOUIS ZIMMER MD /david PATIENT'S NAME: FRITZ ALAN [facility] AGE: 56 Y [address] ROOM: [address] [address] LOCATION: [facility] [place] ADMIT DATE: 01/29/2017 ER/Outpatient Report DISCHARGE DATE: FAMILY PHYSICIAN: Oren Arango MD ATTENDING PHYSICIAN: SAMUEL NEAL /[id number] d: 01/30/17711 t: 02/06/17 1010, OUTPATIENT REPORT
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
--- NOTE | ~2017-01-29 | DS ---
PATIENT'S NAME: FRITZ ALAN [facility] AGE: 56 Y [address] ROOM: [address] [place] [address] LOCATION: [facility] [place] ADMIT DATE: 01/31/2017 Discharge Summary DISCHARGE DATE: 02/19/2017 FAMILY PHYSICIAN: Oren Arango MD ATTENDING PHYSICIAN: Edmundo Watts ADDENDUM: PRIMARY CARE PHYSICIAN: Oren Arango M.D. CONSULTING PHYSICIAN: Raoul Ruvalcaba M.D. DISCHARGE MEDICATIONS: 1. Allopurinol 200 mg p.o. daily. 2. Vitamin D 1000 units p.o. daily. 3. Levothyroxine 100 mcg p.o. daily. 4. Lisinopril 10 mg p.o. daily. 5. Depakote 250 mg p.o. t.i.d. 6. Lorazepam 1 mg p.o. t.i.d. 7. Zyprexa 10 mg p.o. at bedtime. 8. Zyprexa 5 mg p.o. 0800 hours and 1400 hours. 9. MiraLax 17 grams p.o. b.i.d. 10. Tylenol 500 mg 1 or 2 tablets p.o. every 6 hours p.r.n. for pain. 11. Zyprexa 5 mg p.o. q.h.s. p.r.n. for agitation. 12. CPAP per home settings, in position for sleep or sleep anticipation. 13. Fiber Gummies 2 tablets p.o. daily. 14. Florajen capsules 1 capsule p.o. q.a.m. 15. Mirabegron 50 mg p.o. daily. NOTE: Medications discontinued are Zoloft 50 mg p.o. at bedtime. HOSPITAL COURSE: Please refer to the initial discharge summary dictated by Gerard Lutz APRN, when discharge was anticipated. Ultimately, the family did not feel comfortable taking the patient home. Efforts were made by Care Management for placement. This was challenging. The patient continued on the Zyprexa doses. He would occasionally need intermittent IM Zyprexa doses for outbursts and agitation. Ultimately, the Depakote was added to help for mood stabilization and the p.r.n. Zyprexa was changed to oral. The patient seemed to do well with this combination. Ultimately, on 02/19/2017, the patient and family felt they could care for the patient in his own home, relying on family support. The patient was doing well on the day of discharge and remained lucid and cooperative with cares. Denied any needs on the day of discharge. The discharge was discussed with Care Management, Mr. Alan, and Mr. Alan's , all who were in agreement that they would be able to manage at PATIENT'S NAME: FRITZ ALAN [facility] AGE: 56 Y [address] ROOM: [place] [address] LOCATION: [facility] [place] ADMIT DATE: 01/31/2017 Discharge Summary DISCHARGE DATE: 02/19/2017 FAMILY PHYSICIAN: Oren Arango MD ATTENDING PHYSICIAN: Edmundo Watts. Arrangements at that point were made for followup with his primary care doctor, Dr. Oren Arango, in one week and Dr. Raoul Ruvalcaba for ongoing psychiatric support and followup. He will see Dr. Ruvalcaba on 02/28/2017, at 1 p.m. The discharge of this patient took approximately 40 minutes included coordinating of care and reviewing medications and followup appointments upon discharge. HATTIE CATALAN PA-C FOR MD LEX EATONM/nickolasl /[id number] CC: MD Oren Reeves MD d: 02/20/17 0349 t: 02/23/17 1949, DISCHARGE SUMMARY
--- NOTE | ~2017-01-29 | DS ---
PATIENT'S NAME: FRITZ ALAN [facility] AGE: 56 Y [address] ROOM: [id number] [place], [place] [address] LOCATION: [facility] [place] ADMIT DATE: 01/31/2017 Discharge Summary DISCHARGE DATE: 02/07/2017 FAMILY PHYSICIAN: Oren Arango MD ATTENDING PHYSICIAN: Edmundo Watts PRINCIPAL DIAGNOSES: 1. Severe bipolar disorder with acute maggy psychosis. 2. Cerebral palsy. 3. Acute kidney injury on chronic kidney disease, stage 3. 4. Hyponatremia, resolved. 5. Obesity. 6. Obstructive sleep apnea. HOSPITAL COURSE: Please reference any of the admitting data to the history and physical as dictated by Dr. Edmundo Watts. This is a 56-year-old with a history of significant bipolar disorder was presented with acute delirium and exacerbation. He was admitted for further evaluation. He was initially given Haldol in addition to his home regimen of Risperdal and Zoloft. He had minimal response; so, he was given intramuscular Zyprexa and Psych consultation was ordered. Dr. Ruvalcaba who had previously seen the patient transitioned him from Risperdal to oral Zyprexa with intravascular Zyprexa as needed. He did improve somewhat over the next 24 hours, but did have a setback; so, we resumed his Ativan orally in addition to the Zyprexa. He was requiring further more breakthrough Zyprexa. We went ahead and titrated the oral to meet his needs; and by day of discharge, he had improved drastically. Also, of note, the patient who had recently been diagnosed with obstructive sleep apnea, but had not yet obtained his CPAP as an outpatient, we were able to utilize CPAP some of the time during his stay. He did also require one-to-one care just for observation for safety during some of his psychosis. We did provide the patient with physical therapy for gait stability purposes. He did relatively well. Unfortunately, on 02/06/2017, the patient was in his room with family member when he had gotten up to use the bathroom on his own and had a witnessed fall by the family, where he went down on his right-side, complained of some neck pain and was uncertain if he had hit his head. The patient was placed in C-spine precautions and a CT of the C-spine and CT of his head both were negative. The patient initially presented also with a creatinine of 2.0 and 2.1 respectively and after IV fluid hydration he returned to near baseline creatinine of 1.8. Further more infectious workup upon presentation for rule out was negative. PATIENT'S NAME: FRITZ ALAN [facility] AGE: 56 Y [address] ROOM: [place] [address] LOCATION: [facility] [place] ADMIT DATE: 01/31/2017 Discharge Summary DISCHARGE DATE: 02/07/2017 FAMILY PHYSICIAN: Oren Arango MD ATTENDING PHYSICIAN: Edmundo Watts LABORATORY FINDINGS: 1. Pertinent positives as described above most recent chemistry panel on 02/05/2017 showed a glucose of 100, BUN of 29, creatinine 1.8, sodium 142, potassium 4.1, chloride 110, CO2 of 26, calcium 9.6, albumin of 3.2, and magnesium of 2.4. Liver function test on 01/29/2017 were negative. 2. CBC on 01/29/2017 showed a white blood cell count of 8.5, hemoglobin of 16.7, hematocrit of 46.5, and a platelet count of 260. 3. Urine drug screen was negative. 4. Urinalysis was negative. RADIOLOGIC IMAGING: CT of the brain and cervical spine showed no acute findings on February 06. CONSULTING PROVIDERS: Dr. Raoul Ruvalcaba of Psychiatry. DISCHARGE MEDICATIONS: 1. Allopurinol 200 mg p.o. everyday. 2. Vitamin D 1000 units p.o. everyday. 3. Levothyroxine 100 mcg p.o. everyday. 4. Lisinopril 10 mg p.o. everyday. 5. Ativan 1 mg p.o. 3 times daily. 6. Zyprexa 10 mg p.o. every night at bedtime. 7. Zyprexa 5 mg p.o. everyday. 8. MiraLAX 17 g p.o. twice day. 9. Zoloft 50 mg p.o. every night at bedtime. 10. Tylenol Extra Strength 500 mg 1 to 2 tablets every 6 hours as needed. 11. Fiber gummy 2 tablets p.o. everyday. 12. CPAP as per home settings. The patient reportedly has not picked this up for in the home; however, we reported that the patient has a prescription and plans to obtain at discharge from [facility] store. 13. Stop risperidone. 14. Myrbetriq 50 mg p.o. everyday. 15. Florajen 3 capsules 1 capsule p.o. every morning. DISCHARGE INSTRUCTIONS: 1. The patient's diet as tolerated. 2. Activity as tolerated with fall precautions. 3. He should have a followup with his primary care provider Dr. Oren Arango in the next week for posthospitalization followup. In the meantime, we will provide the patient with Home Health Care for further strengthening and observation with physical therapy, occupational therapy, and assisted. A [id number] encounter was obtained. We do request a followup of a basic metabolic panel with Dr. Arango in 1 week. 4. The patient should also follow up with Dr. Raoul Ruvalcaba in 1 week to ensure antipsychotic regimen and condition is stable. PATIENT'S NAME: FRITZ ALAN [facility] AGE: 56 Y [address] ROOM: [place] [address] LOCATION: [facility] [place] ADMIT DATE: 01/31/2017 Discharge Summary DISCHARGE DATE: 02/07/2017 FAMILY PHYSICIAN: Oren Arango MD ATTENDING PHYSICIAN: Edmundo Watts 5. We do also recommend that the patient and his family setup caregivers or adult daycare service at [facility] prior to discharge. Social work was heavily involved in assisting the patient and his family with these things. Above line information was discussed. All questions were answered with statements of understanding. Thank you for allowing us to participate in the care of this patient while at [facility]. YOMAIRA MAGUIRE APRN, APRN FOR MD BUSTER FRIEDMAN/david /[id number] CC: MD Raoul Cordon MD d: t: 02/08/17 0018, DISCHARGE SUMMARY
[~2017-01-29 12:33] MED LIST changes: -DEPAKOTE DELAY250 MG PO; -FLORAJEN3 CAPS460 MG PO; -MYRBETRIQ50 MG PO; -ZYPREXA ORALLY10 MG PO; -ZYPREXA5 MG PO
[2017-01-29 12:55] LABS: BASOPHIL % 0.4 %; EOSINOPHIL % 0.4 %; HEMATOCRIT 46.5 % (37.0-53.0); HEMOGLOBIN 16.7 g/dL (12.0-17.0); IMMATURE GRANULOCYTE % 0.4 %; LYMPHOCYTE # 1.4 K/uL (0.8-4.0); LYMPHOCYTE % 15.9 %; MCH 34.1 pg (27.0-34.0); MCHC 35.9 gm/dL (32.0-36.5); MCV 94.9 fl (83.0-98.0); MONOCYTE # 0.7 K/uL (0.0-1.0); MONOCYTE % 7.8 %; MPV 9.2 fl (9.4-12.4); NEUTROPHIL # (ANC) 6.4 K/uL (1.4-9.0); NEUTROPHIL % 75.1 %; NRBC % 0 /100WBC (0-0.00); PLATELET COUNT 260 K/uL (150-450); RDW-CV 13.4 % (11.9-14.6); WBC 8.5 K/uL (4.0-11.0)
[2017-01-29 13:16] LABS: ALBUMIN 4.2 gm/dL (3.5-5.0); ALK PHOS 80 IU/L (33-138); ALT 53 IU/L (12-78); AST 32 IU/L (10-40); BLOOD UREA NITROGEN 23 mg/dL (6-24); CALCIUM 10.7 mg/dL (8.5-10.5); CHLORIDE 108 mMol/L (96-110); CO2 21 mMol/L (22-32); SODIUM 139 mMol/L (135-145); TOTAL PROTEIN 8.9 g/dL (6.0-8.4)
[2017-01-29 13:19] LABS: TOTAL BILIRUBIN 0.4 mg/dL (0.0-1.5)
[2017-01-29 13:42] LABS: BILIRUBIN URINE NEGATIVE (NEGATIVE); BLOOD URINE NEGATIVE /UL (NEGATIVE); COLOR URINE STRAW (YELLOW); GLUCOSE URINE NEGATIVE (NEGATIVE); KETONE URINE NEGATIVE (NEGATIVE); LEUKOCYTES URINE NEGATIVE /UL (NEGATIVE); NITRITE URINE NEGATIVE (NEGATIVE); PROTEIN URINE NEGATIVE (NEGATIVE); SPEC GRAVITY URINE 1.005 (1.003-1.035); TURBIDITY URINE CLEAR (CLEAR); UROBILINOGEN URINE NORMAL (NORMAL)
[2017-01-29 14:03] LABS: AMPHETAMINE NEGATIVE (NEGATIVE); BARBITURATE NEGATIVE (NEGATIVE); COCAINE NEGATIVE (NEGATIVE); OPIATES NEGATIVE (NEGATIVE)
[2017-01-29] MEDS ORDERED: MYRBETRIQ50 MG PO (21:58)
[2017-01-29] MEDS ORDERED: ZOLOFT50 MG PO (21:59)
[2017-01-29] MEDS ORDERED: FLORAJEN3 CAPS460 MG PO (22:00)
[2017-01-30 14:34] LABS: CALCIUM 9.3 mg/dL (8.5-10.5)
[2017-01-31 06:33] LABS: ANION GAP 12.7 (10.0-19.0); CALCIUM 9.8 mg/dL (8.5-10.5); CREATININE 2.1 mg/dL (0.6-1.3); POTASSIUM 4.7 mMol/L (3.7-5.1)
[2017-02-01 05:48] LABS: ALBUMIN 3.2 gm/dL (3.5-5.0); CALCIUM 9.5 mg/dL (8.5-10.5); CREATININE 1.8 mg/dL (0.6-1.3); MAGNESIUM 2.4 mg/dL (1.8-2.6); POTASSIUM 4.1 mMol/L (3.7-5.1)
[2017-02-01 05:51] LABS: ANION GAP 12.1 (10.0-19.0)
[2017-02-03 06:17] LABS: ANION GAP 14.8 (10.0-19.0); CALCIUM 10.2 mg/dL (8.5-10.5); CREATININE 1.8 mg/dL (0.6-1.3); POTASSIUM 3.8 mMol/L (3.7-5.1)
[2017-02-05 06:45] LABS: ANION GAP 10.1 (10.0-19.0); CALCIUM 9.6 mg/dL (8.5-10.5); CREATININE 1.8 mg/dL (0.6-1.3); POTASSIUM 4.1 mMol/L (3.7-5.1)
[2017-02-07] MEDS ORDERED: ZYPREXA ORALLY10 MG PO (16:40)
[2017-02-07] MEDS ORDERED: ZYPREXA5 MG PO (16:41)
[2017-02-16 05:03] LABS: ANION GAP 11.3 (10.0-19.0); CALCIUM 9.3 mg/dL (8.5-10.5); CREATININE 1.7 mg/dL (0.6-1.3); POTASSIUM 4.3 mMol/L (3.7-5.1); TOTAL PROTEIN 6.9 g/dL (6.0-8.4)
[2017-02-16 05:04] LABS: TOTAL BILIRUBIN 0.2 mg/dL (0.0-1.5)
[2017-02-19 05:14] LABS: ALBUMIN 2.9 gm/dL (3.5-5.0); ANION GAP 10.4 (10.0-19.0); CALCIUM 9.5 mg/dL (8.5-10.5); CREATININE 1.6 mg/dL (0.6-1.3); PHOSPHORUS 3.7 mg/dL (2.5-4.9); POTASSIUM 4.4 mMol/L (3.7-5.1)
[2017-02-19] MEDS ORDERED: DEPAKOTE DELAY250 MG PO (14:21)
[2017-02-19] MEDS ORDERED: ZYPREXA5 MG PO (14:31)
== END 2017-02-19 17:05 | disposition disaster alternative care site (69) | DRG 885 ==
LOC: GMED 12:33 → GMSU 17:58
PROVIDERS: Emergency Medicine; Family Medicine; Internal Medicine; Nurse Practitioner Family; Physician Assistant; ADMIT Internal Medicine
PROC: 5A1935Z Respiratory Ventilation, Less than 24 Consecutive Hours (ICD-10-PCS; principal; 2017-01-31)
DX: F33.3 Major depressive disorder, recurrent, severe with psychotic symptoms (principal); G93.40 Encephalopathy, unspecified; N17.9 Acute kidney failure, unspecified; E87.0 Hyperosmolality and hypernatremia; N18.3 Chronic kidney disease, stage 3 (moderate); E03.9 Hypothyroidism, unspecified; G47.00 Insomnia, unspecified; G47.33 Obstructive sleep apnea (adult) (pediatric); I12.9 Hypertensive chronic kidney disease with stage 1 through stage 4 chronic kidney disease, or unspecified chronic kidney disease; R09.02 Hypoxemia; E66.9 Obesity, unspecified; S30.1XXA Contusion of abdominal wall, initial encounter; W18.30XA Fall on same level, unspecified, initial encounter; Y92.230 Patient room in hospital as the place of occurrence of the external cause; Z68.32 Body mass index [BMI] 32.0-32.9, adult
CPT/HCPCS: G0480; J1200; J2060; J7030; L0174